=== PATIENT | female | born 1990 | race Caucasian/White ===

== ENCOUNTER → 2019-09-21 | Outpatient (CLI) | payer BC | LOC: COL.LAB 11:45 | DX: J45.909 Unspecified asthma, uncomplicated (principal) ==

== ENCOUNTER → 2019-11-13 | Outpatient (CLI) | payer BC | LOC: COL.PUL 10:12 | DX: J45.909 Unspecified asthma, uncomplicated (principal); J32.9 Chronic sinusitis, unspecified | CPT/HCPCS: J7674 ==

== ENCOUNTER → 2020-07-19 | Outpatient (CLI) | payer BC | LOC: MC.RAD 08:00 | DX: N64.4 Mastodynia (principal) ==